=== PATIENT | female | born 1950 | race Caucasian/White ===

== ENCOUNTER 2022-01-06 18:02 | Inpatient (IN) | payer MEDICARE, OTHER ==
[~2022-01-06] VITALS: Ht 160 cm; Wt 63.9 kg
[2022-01-06] MEDS ORDERED: SODIUM CHLORIDE 0.9% 1,000 ML IVB ONE (18:45)
[2022-01-06 19:00] LABS: Basophils # (auto) 0.1 10 ^3/uL (0-0.2); Basophils % (auto) 1.1 % (0.0-2.0); Eosinophils # (auto) 0.1 10 ^3/uL (0-0.8); Eosinophils % (auto) 1.8 % (0.0-7.0); Hematocrit 49.5 % (36.0-46.0); Lymphocytes # (auto) 2.5 10 ^3/uL (0.4-5.4); Lymphocytes % (auto) 30.1 % (10.0-50.0); Mean Corpuscular Hemoglobin 30.9 pg (28.0-32.0); Mean Corpuscular Hgb Conc. 34.3 g/dL (32.0-36.0); Mean Corpuscular Volume 90.1 fL (80.0-100.0); Monocytes # (auto) 0.7 10 ^3/uL (0-1.3); Monocytes % (auto) 8.7 % (0.0-12.0); Neutrophils # (auto) 4.8 10 ^3/uL (1.6-8.6); Neutrophils % (auto) 58.3 % (37.0-80.0); Nucleated Red Blood Cells % 0.1 %; Red Blood Cells 5.49 10^6/uL (4.0-5.20); Red Cell Distribution Width 14.2 % (11.8-14.3); White Blood Cell 8.2 10^3/uL (4.4-10.8)
[2022-01-06 20:42] LABS: Albumin 3.5 g/dL (3.4-5.0); Magnesium 2.2 mg/dL (1.6-2.6); Potassium 3.8 mmol/L (3.5-5.1)
[2022-01-06 20:50] LABS: BUN/Creatinine Ratio 25.3; Bilirubin, Total 0.7 mg/dL (0.2-1.0); Total Protein 7.7 g/dL (6.4-8.2)
[2022-01-06 23:31] LABS: Urine Bacteria MANY /hpf (None Seen); Urine Blood Negative /uL (Negative); Urine Mucus FEW (None Seen); Urine Specific Gravity 1.023 (1.001-1.035); Urine WBC 10 /hpf (0 - 5)
[2022-01-07] MEDS ORDERED: cefTRIAXone 1GM/50ML D5W 50 ML IV ONE (00:30)
[2022-01-07] MEDS ORDERED: SODIUM CHLORIDE 0.9% 1,000 ML IV ONE (00:30)
[2022-01-07] MEDS ORDERED: ONDANSETRON HCL 4 MG/2 ML VIAL IV PRN (01:30)
[2022-01-07] MEDS ORDERED: MORPHINE SULFATE 4 MG/ML SYR/VIAL IV PRN (01:30)
[2022-01-07] MEDS ORDERED: ONDANSETRON HCL 4 MG/2 ML VIAL IV ONE (01:30)
[2022-01-07] MEDS ORDERED: DOCUSATE SOD 100 MG CAP PO PRN (01:30)
[2022-01-07] MEDS ORDERED: LACTATED RINGER'S 1,000 ML IV ONE (01:30)
[2022-01-07] MEDS ORDERED: ACETAMINOPHEN 325 MG TAB PO PRN (01:30)
[2022-01-07 03:20] VITALS: BP 147/64
[2022-01-07 05:00] VITALS: BP 147/64
[2022-01-07 07:06] LABS: Basophils # (auto) 0.1 10 ^3/uL (0-0.2); Eosinophils # (auto) 0.2 10 ^3/uL (0-0.8); Eosinophils % (auto) 2.2 % (0.0-7.0); Hematocrit 42.4 % (36.0-46.0); Hemoglobin 14.5 g/dL (12.2-16.2); Lymphocytes # (auto) 2.3 10 ^3/uL (0.4-5.4); Lymphocytes % (auto) 26.7 % (10.0-50.0); Mean Corpuscular Hemoglobin 30.9 pg (28.0-32.0); Mean Corpuscular Hgb Conc. 34.1 g/dL (32.0-36.0); Mean Corpuscular Volume 90.6 fL (80.0-100.0); Monocytes # (auto) 0.7 10 ^3/uL (0-1.3); Monocytes % (auto) 8.6 % (0.0-12.0); Neutrophils # (auto) 5.3 10 ^3/uL (1.6-8.6); Neutrophils % (auto) 61.5 % (37.0-80.0); Nucleated Red Blood Cells % 0.1 %; Red Blood Cells 4.68 10^6/uL (4.0-5.20); Red Cell Distribution Width 14.1 % (11.8-14.3); White Blood Cell 8.6 10^3/uL (4.4-10.8)
[2022-01-07 07:18] LABS: BUN/Creatinine Ratio 25.3; Calcium 9.2 mg/dL (8.5-10.1); Potassium 3.9 mmol/L (3.5-5.1)
[2022-01-07 08:54] VITALS: BP 133/91
[2022-01-07] MEDS: MULTIPLE VITAMIN TAB PO SCH (10:56)
[2022-01-07] MEDS: FAMOTIDINE 20 MG TAB PO SCH (10:56)
[2022-01-07] MEDS: ENOXAPARIN SOD 40 MG/0.4 ML SYRINGE SC SCH (10:57)
[2022-01-07 11:12] VITALS: BP 145/68
[2022-01-07] MEDS: cefTRIAXone 1GM/50ML D5W 50 ML IV SCH (20:52)
[2022-01-07 22:00] VITALS: BP 124/63
[2022-01-08 05:00] VITALS: BP 135/67
[2022-01-08 05:13] LABS: Basophils # (auto) 0.3 10 ^3/uL (0-0.2); Basophils % (auto) 3.7 % (0.0-2.0); Eosinophils # (auto) 0.2 10 ^3/uL (0-0.8); Eosinophils % (auto) 3.5 % (0.0-7.0); Hematocrit 42.1 % (36.0-46.0); Lymphocytes # (auto) 2.2 10 ^3/uL (0.4-5.4); Lymphocytes % (auto) 32.2 % (10.0-50.0); Mean Corpuscular Hemoglobin 30.6 pg (28.0-32.0); Mean Corpuscular Hgb Conc. 33.2 g/dL (32.0-36.0); Mean Corpuscular Volume 92.1 fL (80.0-100.0); Monocytes # (auto) 0.5 10 ^3/uL (0-1.3); Monocytes % (auto) 7.9 % (0.0-12.0); Neutrophils # (auto) 3.6 10 ^3/uL (1.6-8.6); Neutrophils % (auto) 52.7 % (37.0-80.0); Red Blood Cells 4.57 10^6/uL (4.0-5.20); White Blood Cell 6.9 10^3/uL (4.4-10.8)
[2022-01-08 05:35] LABS: Potassium 3.7 mmol/L (3.5-5.1)
[2022-01-08 05:43] LABS: Albumin 3.1 g/dL (3.4-5.0); BUN/Creatinine Ratio 17.6; Calcium 8.9 mg/dL (8.5-10.1)
[2022-01-08 05:45] LABS: Bilirubin, Total 0.5 mg/dL (0.2-1.0); Total Protein 6.6 g/dL (6.4-8.2)
[2022-01-08 08:00] VITALS: BP 143/75
[2022-01-08] MEDS: FAMOTIDINE 20 MG TAB PO SCH (09:50)
[2022-01-08] MEDS: ENOXAPARIN SOD 40 MG/0.4 ML SYRINGE SC SCH (09:51)
[2022-01-08] MEDS: MULTIPLE VITAMIN TAB PO SCH (09:51)
[2022-01-08] MEDS ORDERED: VANCOMYCIN PER PHARMACY 0 MG IV SCH (10:00)
[2022-01-08] MEDS ORDERED: VANCOMYCIN 1GM/250ML 250 ML IV ONE (10:00)
[2022-01-08 12:30] VITALS: BP 139/73
[2022-01-08] MEDS: SODIUM CHLORIDE 0.9% 1,000 ML IV SCH ×2 (14:10→23:11)
[2022-01-08] MEDS: VANCOMYCIN 1GM/250ML 250 ML IV SCH (14:11)
[2022-01-08 17:00] VITALS: BP 130/70
[2022-01-08] MEDS: cefTRIAXone 1GM/50ML D5W 50 ML IV SCH (20:58)
[2022-01-08 22:00] VITALS: BP 116/69
[2022-01-09 05:00] VITALS: BP 132/66
[2022-01-09] MEDS: SODIUM CHLORIDE 0.9% 1,000 ML IV SCH ×2 (06:04→13:15)
[2022-01-09 09:00] VITALS: BP 134/72
[2022-01-09] MEDS: MULTIPLE VITAMIN TAB PO SCH (09:14)
[2022-01-09] MEDS: FAMOTIDINE 20 MG TAB PO SCH (09:14)
[2022-01-09] MEDS: ENOXAPARIN SOD 40 MG/0.4 ML SYRINGE SC SCH (09:14)
[2022-01-09] MEDS: VANCOMYCIN 1GM/250ML 250 ML IV SCH (14:00)
[2022-01-09] MEDS: cefTRIAXone 1GM/50ML D5W 50 ML IV SCH (21:01)
[2022-01-09 21:55] VITALS: BP 143/48
[2022-01-10] MEDS: SODIUM CHLORIDE 0.9% 1,000 ML IV SCH ×2 (00:56→06:15)
[2022-01-10 05:00] VITALS: BP 137/67
[2022-01-10 06:54] LABS: Calcium 8.4 mg/dL (8.5-10.1); Potassium 3.7 mmol/L (3.5-5.1)
[2022-01-10 07:03] LABS: BUN/Creatinine Ratio 16.3
[2022-01-10 09:00] VITALS: BP 165/112
[2022-01-10] MEDS: MULTIPLE VITAMIN TAB PO SCH (09:24)
[2022-01-10] MEDS: FAMOTIDINE 20 MG TAB PO SCH (09:24)
[2022-01-10] MEDS: ENOXAPARIN SOD 40 MG/0.4 ML SYRINGE SC SCH (09:24)
[2022-01-10] MEDS ORDERED: LEVO500T31 PO (10:16)
== END 2022-01-10 12:45 | disposition home health service (06) | DRG 872 ==
LOC: ER 18:04 → EDBD 18:04 → OVERFLOW 01-07 01:17 → CENTRAL 01-07 01:18
PROVIDERS: ADMIT Internal Medicine; ATTEND Family Medicine
DX: A41.51 Sepsis due to Escherichia coli [E. coli] (principal); N10 Acute pyelonephritis; E86.0 Dehydration; M41.9 Scoliosis, unspecified; Z66 Do not resuscitate; F41.9 Anxiety disorder, unspecified; R53.81 Other malaise; Z20.822 Contact with and (suspected) exposure to COVID-19; Z88.5 Allergy status to narcotic agent; Z90.49 Acquired absence of other specified parts of digestive tract; Z82.49 Family history of ischemic heart disease and other diseases of the circulatory system; Z80.0 Family history of malignant neoplasm of digestive organs; Z98.82 Breast implant status; Z88.8 Allergy status to other drugs, medicaments and biological substances
CPT/HCPCS: 36415; 70450; 71045; 74176; 80048; 80053; 81001; 82565; 83690; 83735; 83880; 84484; 85025; 87040; 87077; 87086; 87088; 87186; 87426; 93005; 96361; 96365; 97163; G0378; J0696; J2405

== ENCOUNTER → 2022-03-22 | Outpatient (CLI) | payer MEDICARE, OTHER ==
[~2022-03-22] MED LIST: LEVO500T31 PO
== END | disposition home or self-care (01) ==
LOC: XYW 08:48
PROVIDERS: ATTEND Internal Medicine
DX: I77.9 Disorder of arteries and arterioles, unspecified (principal); I70.90 Unspecified atherosclerosis
CPT/HCPCS: 93886

== ENCOUNTER → 2022-03-22 | Outpatient (CLI) | payer MEDICARE, OTHER ==
[2022-03-22 10:42] LABS: Cholesterol 240 mg/dL (< 200)
[2022-03-22 10:44] LABS: HDL Cholesterol 75 mg/dL (40-59); LDL Cholesterol 142 mg/dL (< 100); Triglycerides 80 mg/dL (< 150)
[2022-03-26 13:48] LABS: Urine Bacteria MOD /hpf (None Seen); Urine Blood Negative /uL (Negative); Urine Specific Gravity 1.011 (1.001-1.035); Urine WBC <1 /hpf (0 - 5)
== END | disposition home or self-care (01) ==
LOC: LAB 09:24
PROVIDERS: ATTEND Internal Medicine
DX: I10 Essential (primary) hypertension (principal); Z12.11 Encounter for screening for malignant neoplasm of colon
CPT/HCPCS: 36415; 80061; 81001; 83036

== ENCOUNTER → 2022-03-26 | Outpatient (CLI) | payer MEDICARE, OTHER | END | disposition home or self-care (01) | LOC: LAB 09:40 | PROVIDERS: ATTEND Internal Medicine | DX: I10 Essential (primary) hypertension (principal); Z12.11 Encounter for screening for malignant neoplasm of colon | CPT/HCPCS: 82270 ==

== ENCOUNTER → 2022-03-26 | Outpatient (CLI) | payer MEDICARE, OTHER | END | disposition home or self-care (01) | LOC: XYW 09:12 | PROVIDERS: ATTEND Internal Medicine | DX: I08.1 Rheumatic disorders of both mitral and tricuspid valves (principal); I35.8 Other nonrheumatic aortic valve disorders | CPT/HCPCS: 93306 ==

== ENCOUNTER 2025-08-24 15:08 | Inpatient (IN) | payer MEDICARE, OTHER ==
[~2025-08-24] VITALS: Ht 157.5 cm; Wt 54.3 kg
[2025-08-24] MEDS: SODIUM CHLORIDE 0.9% 1,000 ML IV ONE ×2 (15:30→22:54)
--- NOTE | 2025-08-24 15:34 | ECG ---
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
--- NOTE | 2025-08-24 15:34 | ED.PDOC ---
GI ASSESSMENT HPI Comments This is a 74 year old female BIB daughter presenting to the ED with chief complaint of abdominal pain. Patient reports that she has been experiencing epigastric abdominal pain with associated nausea, vomiting, diarrhea, fatigue, dizzy spells, and chills for the past 2 days along with headaches since yesterday. Daughter relays that the patient uses marijuana daily for "medicinal purposes." Daughter states patient had history of sepsis last year. Patient denies any fever, chest pain, SOB, hematemesis, melena, dysuria, or flank pain. Chief Complaint: General Weakness Time Seen by MD: 15:30 Primary Care Provider: MEGIES PMD Reviewed Notes: Nurses Notes, Medications, Allergies Allergies: Coded Allergies: Codeine (Verified Allergy, Mild, 01/06/22) Ibuprofen (Verified Allergy, Mild, 01/06/22) Home Meds Active Scripts Levofloxacin (Levaquin) 500 Mg Tab, 500 MG PO DAILY, #10 TAB Prov:YOSEF COX MD 01/10/22 Information Source: Patient, Relative Mode of Arrival: Ambulatory Timing: Days Duration: Since onset Prehospital treatment: None Quality: Aching Vomitus: Watery Stool: Watery Severity: Moderate Recent: Other (Marijuana use) Recent Hx of: None Pain Location: Epigastric Modifying Factors: Nothing Associated sign and symptoms: Nausea, Vomiting, Diarrhea, Abdominal Pain Past Medical History PAST MEDICAL HISTORY: Denies Surgical History: Cholecystectomy Surgical History (Other): Breast Augmentation PARTY PLANNER History: Denies all PARTY PLANNER Hx Family History Family History: Reviewed,noncontributory to illness, Family hx of Cancer, Family hx of HTN Social History Smoker: Non-Smoker Alcohol: Occasionally Drugs: Marijuana Lives In: Home Constitutional: reports: chills, fatigue, weakness; denies: diaphoresis, fever, malaise, sweats, others EENTM: denies: blurred vision, double vision, ear bleeding, ear discharge, ear drainage, ear pain, ear ringing, eye pain, eye redness, hearing loss, mouth pain, mouth swelling, nasal discharge, nose bleeding, nose congestion, nose pain, photophobia, tearing, throat pain, throat swelling, voice changes, others Respiratory: denies: cough, hemoptysis, orthopnea, SOB at rest, shortness of breath, SOB with excertion, stridor, wheezing, others Cardiovascular: reports: dizzy spells; denies: chest pain, diaphoresis, Dyspnea on exertion, edema, irregular heart beat, left arm pain, lightheadedness, palpitations, PND, syncope, others Gastrointestinal: reports: abdominal pain, diarrhea, nausea, vomiting; denies: abdomen distended, blood streaked bowels, constipated, dysphagia, difficulty swallowing, hematemesis, melena, poor appetite, poor fluid intake, rectal bleeding, rectal pain, others Genitourinary: denies: abnormal vagina bleeding, burning, dyspareunia, dysuria, flank pain, frequency, hematuria, incontinence, pain, , vagina discharge, urgency, others Neurological: reports: headache; denies: dizziness, fainting, left sided numbness, left sided weakness, numbness, paresthesia, pre-existing deficit, right sided numbness, right sided weakness, seizure, speech problems, tingling, tremors, weakness, others Musculoskeletal: denies: back pain, gout, joint pain, joint swelling, muscle pain, muscle stiffness, neck pain, others Integumetry: denies: bruises, change in color, change in hair/nails, dryness, laceration, lesions, lumps, rash, wounds, others Allergic/Immunocompromised: denies: Difficulty Healing, Frequent Infections, Hives, Itching, others Hematologic/Lymphatic: denies: anemia, blood clots, easy bleeding, easy bruising, swollen glands, others Endocrine: denies: excessive hunger, excessive sweating, excessive thirst, excessive urination, flushing, intolerance to cold, intolerance to heat, unexplained weight gain, unexplained weight loss, others Psychiatric: denies: anxiety, bipolar disorder, depression, hopeless, panic disorder, schizophrenia, sleepless, suicidal, others All Other Systems: Reviewed and Negative Physical Exam General Appearance: No Apparent Distress HEENT: Normal ENT Inspection, Pharynx Normal, TMs Normal Neck: Full Range of Motion, Non-Tender, Normal, Normal Inspection Respiratory: Chest Non-Tender, Lungs Clear, No Accessory Muscle Use, No Respiratory Distress, Normal Breath Sounds Cardiovascular: No Edema, No JVD, No Murmur, No Gallop, Normal Peripheral Pulses, Regular Rate/Rhythm Breast Exam: Deferred Gastrointestinal: No Organomegaly, Non Tender, No Pulsatile Mass, Normal Bowel Sounds, Soft Genitalia: Deferred Pelvic: Deferred Rectal: Deferred Extremities: No calf tenderness, Normal capillary refill, Normal inspection, Normal range of motion, Non-tender, No pedal edema Musculoskeletal : Apperance: Normal Neurologic: electrical design engineer II-XII nml as Tested, Motor Weakness, Normal Affect, Normal Mood, No Sensory Deficits Cerebellar Function: Unable to Test Reflexes: Normal Skin: Dry, Pallor, Warm Lymphatic: No Adenopathy EKG EKG : Pulse Rate (adult): 92 [place]: Normal Cardiac Rhythm: NSR Block: None Hypertrophy: None ST: Normal Was a procedure done? Was a procedure done?: No GI differential Dx Differential Diagnosis: Appendicitis, Gastritis/PUD, Gastroenteritis, Pancreatitis, UTI, Electrolyte Imbalance X-Ray, Labs, Meds, VS Vital Signs Date Time Temp Pulse Resp B/P (MAP) Pulse Ox O2 Delivery O2 Flow Rate FiO2 08/24/25 15:34 92 08/24/25 15:25 92 08/24/25 15:11 98.3 99 18 151/95 95 98.3 Lab Test 08/24/25 16:00 08/24/25 15:38 Range/Units Urine Color Yellow Yellow Urine Clarity Turbid H Clear Urine pH 5.5 5.0-9.0 Urine Specific [place] 1.023 1.001-1.035 Urine Protein 1+ H Negative Urine Ketones 2+ H Negative Urine Blood 1+ H Negative /uL Urine Nitrite Negative Negative Urine Bilirubin Negative Negative Urine Urobilinogen Normal Negative mg/dL Urine Leukocyte Esterase 3+ Negative /uL Urine RBC 21 0 - 4 /hpf Urine Microscopic WBC 65 H 0-5 /HPF Urine Squamous Epithelial Cells Mod <5 /hpf Urine Bacteria Few H None Seen /hpf Urine Hyaline Casts Few 0 - 2 /lpf Urine Mucus Few None Seen Urine Glucose Normal Normal mg/dL White Blood Count 7.6 4.4-10.8 10^3/uL Red Blood Count 5.61 H 4.0-5.20 10^6/uL Hemoglobin 17.1 H 12.2-16.2 g/dL Hematocrit 52.8 H 36.0-46.0 % Mean Corpuscular Volume 94.2 80.0-100.0 fL Mean Corpuscular Hemoglobin 30.6 28.0-32.0 pg Mean Corpuscular Hemoglobin Concent 32.5 32.0-36.0 g/dL Red Cell Distribution Width 15.1 H 11.8-14.3 % Platelet Count 287 140-450 10^3/uL Mean Platelet Volume 8.3 6.9-10.8 fL Neutrophils (%) (Auto) 53.1 37.0-80.0 % Lymphocytes (%) (Auto) 34.9 10.0-50.0 % Monocytes (%) (Auto) 11.3 0.0-12.0 % Eosinophils (%) (Auto) 0.2 0.0-7.0 % Basophils (%) (Auto) 0.5 0.0-2.0 % Neutrophils # (Auto) 4.1 1.6-8.6 10 ^3/uL Lymphocytes # (Auto) 2.7 0.4-5.4 10 ^3/uL Monocytes # (Auto) 0.9 0-1.3 10 ^3/uL Eosinophils # (Auto) 0 0-0.8 10 ^3/uL Basophils # (Auto) 0 0-0.2 10 ^3/uL Nucleated Red Blood Cells 0.2 % Sodium Level 136 136-145 mmol/L Potassium Level 3.7 3.5-5.1 mmol/L Chloride Level 99 98-107 mmol/L Carbon Dioxide Level 25 20-31 mmol/L Anion Gap 12 5-15 Blood Urea Nitrogen 9 9-23 mg/dL Creatinine 0.91 0.550-1.02 mg/dL Glomerular Filtration Rate Calc 65 >90 mL/min BUN/Creatinine Ratio 9.9 L 10.0-20.0 Serum Glucose 117 H 74-106 mg/dL Calcium Level 9.6 8.7-10.4 mg/dL CBC is within normal limits The chemistry panel is within normal limits The urine test is positive for UTI The urine test is also positive for ketones, protein and blood The patient is being given Rocephin 1 g IV piggyback The patient will continue to be hydrated with normal saline We feel that the patient is to be admitted at this time because she can not take oral medications for her UTI The patient is admitted Images Reviewed?: Images reviewed and evaluated by me Time of 1ST Reevaluation: 17:09 Reevaluation 1ST: Unchanged Patient Education/Counseling: Diagnosis, Treatment, Prognosis Family Education/Counseling: Diagnosis, Treatment, Prognosis SEPSIS Sepsis Screen Date sepsis recognized/suspect: Aug 24, 2025 Time Sepsis recognized/suspect: 1511 Recent Procedure: No On Antibiotic Therapy: No Respiratory Rate >20: No Heart Rate >90: No Temp<36 C (96.8 F) or >38.3 C: No SBP <90 or MAP <65 mmHG: No New Acute Mental Status Change: No Is the patient on CPAP, BIPAP,: No Physician Orders Heplock Iv (08/24/25 15:28) Slurry Plant Operator (08/24/25 15:28) Blood Pressure (08/24/25 15:28) Pulse Oximetry (08/24/25 15:28) Vital Signs Date Time Temp Pulse Resp B/P (MAP) Pulse Ox O2 Delivery O2 Flow Rate FiO2 08/24/25 15:34 92 08/24/25 15:25 92 08/24/25 15:11 98.3 99 18 151/95 95 98.3 Laboratory Tests Test 08/24/25 15:38 White Blood Count 7.6 10^3/uL (4.4-10.8) Departure 1 Departure Time of Disposition: 17:09 Impression: Primary Impression: Intractable vomiting Additional Impressions: Generalized weakness Dehydration Disposition: ADMITTED INPATIENT Admit to: Med Surg Condition: Fair Critical Care Note Critical Care Time?: No Stability Stability form required: Yes Unstable for transfer: Telemetry monitoring (Telemetry monitoring required), ED Physician Assesment (Clinical assesment) Heart Score Heart Score: Heart Score Response (Comments) Value History N/A 0 EKG N/A 0 Age N/A 0 Risk Factors N/A 0 Troponin N/A 0 Total 0 I personally scribed for FRANCOIS BENEDICT MD ([email or web address]) on 08/24/25 at 15:34. Electronically submitted by Gigi Bermudez ([email or web address]). FRANCOIS BENEDICT MD Aug 24, 2025 15:34
[2025-08-24 16:04] LABS: Hematocrit 52.8 % (36.0-46.0); Hemoglobin 17.1 g/dL (12.2-16.2); Mean Corpuscular Hemoglobin 30.6 pg (28.0-32.0); Mean Corpuscular Volume 94.2 fL (80.0-100.0); Nucleated Red Blood Cells % 0.2 %
[2025-08-24 16:11] LABS: Chloride 99 mmol/L (98-107); Potassium 3.7 mmol/L (3.5-5.1); Sodium 136 mmol/L (136-145)
[2025-08-24 16:12] LABS: Anion Gap 12 (5-15); Calcium 9.6 mg/dL (8.7-10.4); Carbon Dioxide 25 mmol/L (20-31)
[2025-08-24 16:17] LABS: BUN/Creatinine Ratio 9.9 (10.0-20.0); Blood Urea Nitrogen 9 mg/dL (9-23); Glucose 117 mg/dL (74-106)
[2025-08-24 17:04] LABS: Urine Protein, UAD 1+ (Negative)
[2025-08-24] MEDS: ONDANSETRON HCL 4 MG/2 ML VIAL IV ONE (19:14)
[2025-08-24 21:10] LABS: Alanine Aminotransferase 28 U/L (7-40); Alkaline Phosphatase 103 U/L (46-116)
[2025-08-24 21:11] LABS: Albumin 4.8 g/dL (3.2-4.8); Bilirubin, Total 0.3 mg/dL (0.2-1.0)
--- NOTE | 2025-08-24 21:12 | DVHHPRES ---
History of Present Illness Resident Creating Document: JOSE BOONE History of Present Illness Ms. Hall is a 74-year-old female with no prior medical history, who presents accompanied by daughter, Marisa, to the ED with chief complaint of generalized weakness. She refers 2 days of generalized weakness, fatigue, generalized body aches, diarrhea, vomiting, decreased appetite, chills and febrile sensation. Additionally refers occasional right lower back pain described as dull, non- radiating, 4/10 intensity, with aggravating or relieving factors. She denies chest pain, cough, palpitations, dysuria, hematuria, disorientation, and other symptoms. Due to persistence of symptoms, the patient was brought by her daughter to seek medical attention. On evaluation in the ED, the patient was afebrile, slightly tachycardic, and hypertensive. Initial labs show CBC with possible signs of dehydration, chemical panel within normal range, UDS positive for cannabis, and UA significant for UTI. Abdominal CT shows no acute abdominal finding. She was started on IV fluids and IV antibiotics. She was admitted for further work up and monitoring. Prior Medical History: Denies Surgical history: Cholecystectomy, breast augmentation Allergies: Codeine and Motrin (patient states they make her feel ill) Social History: States she has smoked 1 joint of marijuana a day for over 45 years, denies other drug or alcohol use. States she smoked 1 pack a day of cigarettes for 10 years and quit approximately 30 years ago. Review of Systems Review of Systems Constitutional: Refers chills, fatigue, generalized body aches, febrile sensation, decreased appetite HEENT: Denies changes in vision and hearing. Respiratory: Denies shortness of breath and cough Cardiovascular: Denies chest discomfort or palpitations GI: Refers occasional diarrhea, nausea, vomiting Denies abdominal distention, abdominal pain : Denies dysuria and urinary frequency. Musculoskeletal: Refers localized right lower back pain Skin: Denies rash and pruritus. Neurological: denies dizziness headache vision or hearing problems Allergies: Coded Allergies: Codeine (Verified Allergy, Mild, 01/06/22) Ibuprofen (Verified Allergy, Mild, 01/06/22) Medications Current Medications Medications Dose Ordered Sig/Lenora Route Start Time Stop Time Status Last Admin Dose Admin Acetaminophen 325 mg Q4HP PRN PO 08/24/25 21:15 UNV Exam Vital Signs Vital Signs Date Time Temp Pulse Resp B/P (MAP) Pulse Ox O2 Delivery O2 Flow Rate FiO2 08/24/25 19:01 88 18 98 Room Air 08/24/25 19:01 131/91 (104) 08/24/25 15:11 98.3 98.3 Exam General: The patient alert and oriented in person place and time. Patient following commands HEENT: Normocephalic, atraumatic, normal reactive pupils, EOM intact, pink conjunctiva, pink dry mucous membrane Respiratory/pulmonary: Bilateral chest expansion, no pain on palpation of chest wall, clear lungs bilaterally, vesicular murmurs present in almost all lung monte, no associated crackles or wheezes. Back: Kyphosis of thoracic spine is present, no pain on palpation Cardiovascular: Normal RRR, normal S1 and S2, no murmurs Abdomen: Abdomen nondistended, normal bowel sounds, soft, there is no pain to palpation in any of the abdominal quadrants, no palpable masses. Extremities: No deformities, there is no peripheral edema present at the lower extremities, normal pulses Skin: No rashes or pruritus, there is no sacral edema present at this time. Neurological: Intact cranial nerves with no focal neurologic deficits Labs/Xrays Labs Test 08/24/25 16:00 08/24/25 15:38 Range/Units Urine Color Yellow Yellow Urine Clarity Turbid H Clear Urine pH 5.5 5.0-9.0 Urine Specific [place] 1.023 1.001-1.035 Urine Protein 1+ H Negative Urine Ketones 2+ H Negative Urine Blood 1+ H Negative /uL Urine Nitrite Negative Negative Urine Bilirubin Negative Negative Urine Urobilinogen Normal Negative mg/dL Urine Leukocyte Esterase 3+ Negative /uL Urine RBC 21 0 - 4 /hpf Urine Microscopic WBC 65 H 0-5 /HPF Urine Squamous Epithelial Cells Mod <5 /hpf Urine Bacteria Few H None Seen /hpf Urine Hyaline Casts Few 0 - 2 /lpf Urine Mucus Few None Seen Urine Glucose Normal Normal mg/dL White Blood Count 7.6 4.4-10.8 10^3/uL Red Blood Count 5.61 H 4.0-5.20 10^6/uL Hemoglobin 17.1 H 12.2-16.2 g/dL Hematocrit 52.8 H 36.0-46.0 % Mean Corpuscular Volume 94.2 80.0-100.0 fL Mean Corpuscular Hemoglobin 30.6 28.0-32.0 pg Mean Corpuscular Hemoglobin Concent 32.5 32.0-36.0 g/dL Red Cell Distribution Width 15.1 H 11.8-14.3 % Platelet Count 287 140-450 10^3/uL Mean Platelet Volume 8.3 6.9-10.8 fL Neutrophils (%) (Auto) 53.1 37.0-80.0 % Lymphocytes (%) (Auto) 34.9 10.0-50.0 % Monocytes (%) (Auto) 11.3 0.0-12.0 % Eosinophils (%) (Auto) 0.2 0.0-7.0 % Basophils (%) (Auto) 0.5 0.0-2.0 % Neutrophils # (Auto) 4.1 1.6-8.6 10 ^3/uL Lymphocytes # (Auto) 2.7 0.4-5.4 10 ^3/uL Monocytes # (Auto) 0.9 0-1.3 10 ^3/uL Eosinophils # (Auto) 0 0-0.8 10 ^3/uL Basophils # (Auto) 0 0-0.2 10 ^3/uL Nucleated Red Blood Cells 0.2 % Sodium Level 136 136-145 mmol/L Potassium Level 3.7 3.5-5.1 mmol/L Chloride Level 99 98-107 mmol/L Carbon Dioxide Level 25 20-31 mmol/L Anion Gap 12 5-15 Blood Urea Nitrogen 9 9-23 mg/dL Creatinine 0.91 0.550-1.02 mg/dL Glomerular Filtration Rate Calc 65 >90 mL/min BUN/Creatinine Ratio 9.9 L 10.0-20.0 Serum Glucose 117 H 74-106 mg/dL Calcium Level 9.6 8.7-10.4 mg/dL SEPSIS Sepsis Screen Date sepsis recognized/suspect: Aug 24, 2025 Time Sepsis recognized/suspect: 1510 Recent Procedure: No On Antibiotic Therapy: No Respiratory Rate >20: No Heart Rate >90: No Temp<36 C (96.8 F) or >38.3 C: No SBP <90 or MAP <65 mmHG: No New Acute Mental Status Change: No Is the patient on CPAP, BIPAP,: No Physician Orders Heplock Iv (08/24/25 15:28) Children'S Ministry Director (08/24/25 15:28) Blood Pressure (08/24/25 15:28) Pulse Oximetry (08/24/25 15:28) Electrocardigram (08/24/25 17:31) Blood Culture (08/24/25 20:21) Hemoglobin A1c (08/24/25 20:21) Hepatic Panel (08/24/25 20:21) Phosphorus (08/24/25 20:21) Lactic Acid W/ Reflex Order (08/24/25:21) Thyroid Stimulating Hormone (08/24/25:21) Vitamin B12 (08/24/25 20:21) Vitamin D, 25-Hydroxy (08/24/25 20:21) Urine Bacterial Culture (08/24/25 20:21) Drug Screen (08/24/25:) Abdomen Without Contrast (08/24/25:) Admit (08/24/25 21:02) Allergies (08/24/25 21:02) Code Status (08/24/25 21:02) Acetaminophen Tablet (Tylenol Tablet) (08/24/25:15) Enoxaparin Sodium (Lovenox) (08/25/25 10:00) Condition: Stable (08/24/25 21:02) Stat Ekg For Chest Pain (08/24/25 21:02) Notify Md Of Changes From Base (08/24/25 21:02) Emergency Dysrhythmia Protocol (08/24/25 21:02) Rhythm Strips Once Every Shift (08/24/25 21:02) Ceftriaxone 1gm/50ml (Rocephin) (08/24/25 21:15) Ceftriaxone 1gm/50ml (Rocephin) (08/25/25 09:00) Sodium Chloride 0.9% (08/24/25:15) Complete Blood Count (08/25/25 04:00) Basic Metabolic Panel (08/25/25 04:00) Vital Signs Date Time Temp Pulse Resp B/P (MAP) Pulse Ox O2 Delivery O2 Flow Rate FiO2 08/24/25 19:01 88 18 98 Room Air 08/24/25 19:01 85 18 131/91 (104) 97 08/24/25 15:34 92 08/24/25 15:25 92 08/24/25 15:11 98.3 99 18 151/95 95 98.3 Laboratory Tests Test 10/14/25 15:38 White Blood Count 7.6 10^3/uL (4.4-10.8) Medications Medications Dose Ordered Sig/Lenora Route Start Time Stop Time Status Last Admin Dose Admin Ondansetron HCl 4 mg ONCE ONCE IV 08/24/25 15:30 08/24/25 15:31 DC 08/24/25 19:14 4 MG Sodium Chloride 1,000 ml @ 1,000 mls/hr Q1H ONCE IV 08/24/25 15:30 08/24/25 16:29 DC 08/24/25 15:30 1,000 MLS/HR Assessment/Plan Assessment/Plan Assessment and Plan: Acute Complicated UTI with microhematuria - Ceftriaxone 1 g IV daily - NS 1000 cc bolus attempts to - NS maintenance 50 cc/hour - Urine culture has been ordered - Blood culture was ordered Intractable nausea and vomiting likely due to above Dehydration likely due to above - IV fluids - Zofran 4 mg IV once Vitamin-D deficiency -Vitamin D3 50410 units Q7D Marijuana Use - I have counseled the patient on the importance of complete marijuana cessation for over 11 minutes. Diet: Soft mechanical diet DVT prophylaxis: Enoxaparin 40 mg SC daily GI prophylaxis: Protonix 40 mg IV daily Case discussed with Dr. Mary Goals of care discussed with the patient and her daughter Marisa at bedside for over 23 minutes. Full code. Plan discussed with: Patient, Daughter (Marisa), Other (Nurses) My Orders Orders - JOSE BOONE RESIDENT Procedure Category Date Status Time Blood Culture KEVIN 08/24/25 Logged 20:21 Hemoglobin A1c LAB 08/24/25 In Process 20:21 Hepatic Panel LAB 08/24/25 In Process 20:21 Phosphorus LAB 08/24/25 In Process 20:21 Lactic Acid W/ Reflex LAB 08/24/25 Logged Order 20:21 Thyroid Stimulating LAB 08/24/25 In Process Hormone 20:21 Vitamin B12 LAB 08/24/25 In Process 20:21 Vitamin D, 25-Hydroxy LAB 08/24/25 In Process 20:21 Urine Bacterial KEVIN 08/24/25 In Process Culture 20:21 Drug Screen LAB 08/24/25 In Process 20:[address] 08/24/25 Taken Contrast 20:21 Admit ADMIT 08/24/25 Transmitted 21:02 Allergies ELIZABETH 08/24/25 In Process 21:02 Code Status CODE 10/14/25 Transmitted 21:02 Acetaminophen Tablet PHA 08/24/25 Logged (Tylenol Tablet) 21:15 Enoxaparin Sodium PHA 08/25/25 Logged (Lovenox) 10:00 Condition: Stable ELIZABETH 08/24/25 In Process 21:02 Stat Ekg For Chest [facility] 08/24/25 In Process Pain 21:02 Notify Md Of Changes [facility] 08/24/25 In Process From Base 21:02 Emergency Dysrhythmia [facility] 08/24/25 In Process Protocol 21:02 Rhythm Strips Once [facility] 08/24/25 In Process Every Shift 21:02 Ceftriaxone 1gm/50ml [facility] 08/24/25 Logged (Rocephin) 21:15 Ceftriaxone 1gm/50ml [facility] 08/25/25 Logged (Rocephin) 09:00 Sodium Chloride 0.9% [facility] 08/24/25 Logged 21:15 Complete Blood Count LAB 08/25/25 Verified 04:00 Basic Metabolic Panel LAB 08/25/25 Verified 04:00 Date of Service: Aug 24, 2025 Billing Provider: KARL RENTERIA MD Common Visit Codes: 13546-SRCBPUH INP/OBS CARE (HIGH) Secondary Visit Codes: 25590-[id number] CARE PLAN 30 MINUTES JOSE BOONE RESIDENT Aug 24, 2025 21:12 MIGUELANGEL BACK RESIDENT Aug 25, 2025 04:08
[2025-08-24] MEDS ORDERED: ACETAMINOPHEN 325 MG TAB PO PRN (21:15)
[2025-08-24 21:17] LABS: Bilirubin, Direct < 0.1 mg/dL (<0.3); Total Protein 8.8 g/dL (5.7-8.2)
--- NOTE | 2025-08-24 21:20 | DVH ---
Exam: CT ABDOMEN WITHOUT CONTRAST History: Abdominal Pain Comparison Study: CT ABD PELVIS WO CONTRAST on DOS: 01/07/22 Technique: Multidetector spiral CT of the abdomen was performed from lung bases to iliac crest. Imagi ng was performed without IV contrast. Axial, coronal and sagittal multiplanar reformats were obtained from the axial data set by the technologist. Radiation Dose : CT Dose: CTDI volume is 5.34 mGy. Dose-length product is 270.65 mGy*cm Findings: Evaluation of solid organs is limited due to lack of intravenous contrast use. Lung Bases: No acute or significant lung base finding. Normal heart size. No pleural or pericardial effusion. Liver: The liver is normal in size. No focal lesions. Gallbladder and Biliary Tree: Gallbladder is surgically absent. Spleen: Unremarkable Pancreas: The pancreas is grossly normal in appearance. Adrenal Glands: Unremarkable Kidneys: Kidneys are grossly normal without calculi or hydronephrosis. Visualized Bowel: The stomach is grossly normal in appearance. Small bowel and colon are normal in ca liber and distribution. Ascites: Absent Lymphadenopathy: No mesenteric, retroperitoneal or periportal lymphadenopathy. Abdominal Wall and Mesentery: Unremarkable. Vasculature: The visualized abdominal aorta is normal in size and caliber. Evaluation of abdominal a nd pelvic vessels is limited due to lack of intravenous contrast. Musculoskeletal: No aggressive focal bony lesions, acute fractures or dislocation. IMPRESSION: No acute abdominal finding. Radiation optimization: All CT scans at this facility use at least one of these dose optimization nancy hniques: automated exposure control mA and/or kV adjustment per patient size (includes targeted exam s where dose is matched to clinical indication) or iterative reconstruction.
[2025-08-24 21:29] LABS: Cannabinoid Screen, Urine Pos (NEGATIVE)
[2025-08-24 21:41] LABS: Amphetamine Screen, Urine Neg (NEGATIVE); Barbiturate Scree,Urine Neg (NEGATIVE); Benzodiazephine Screen, Urine Neg (NEGATIVE); Cocaine Screen, Urine Neg (NEGATIVE); Opiate Scree,Urine Neg (NEGATIVE); Phencyclidine Screen, Urine Neg (NEGATIVE)
[2025-08-25 01:09] VITALS: PULSE 65; RESP 18; O2SAT 97
[2025-08-25] MEDS: SODIUM CHLORIDE 0.9% 1,000 ML IV SCH (02:23)
[2025-08-25 05:00] VITALS: BP 145/76; PULSE 67; RESP 18; TEMP 98.4; O2SAT 96
[2025-08-25 07:17] LABS: Hematocrit 43.5 % (36.0-46.0); Hemoglobin 15.1 g/dL (12.2-16.2); Mean Corpuscular Hemoglobin 32.0 pg (28.0-32.0); Mean Corpuscular Volume 92.3 fL (80.0-100.0); Nucleated Red Blood Cells % 0.2 %
[2025-08-25 07:22] LABS: Anion Gap 11 (5-15); Carbon Dioxide 24 mmol/L (20-31); Chloride 106 mmol/L (98-107); Potassium 3.5 mmol/L (3.5-5.1); Sodium 141 mmol/L (136-145)
[2025-08-25 07:28] LABS: BUN/Creatinine Ratio 13.9 (10.0-20.0); Blood Urea Nitrogen 10 mg/dL (9-23); Glucose 94 mg/dL (74-106)
[2025-08-25 07:29] LABS: Calcium 8.4 mg/dL (8.7-10.4)
[2025-08-25 08:02] LABS: COVID19 ANTIGEN SOFIA FIA POSITIVE (NEGATIVE)
[2025-08-25 09:00] VITALS: BP 126/76; PULSE 67; RESP 17; TEMP 97.7; O2SAT 96
[2025-08-25 12:30] VITALS: BP 126/71; PULSE 66; RESP 14; TEMP 98.7; O2SAT 97
[2025-08-25] MEDS: ERGOCALCIFEROL 50,000 UNIT(1.25MG) CAP PO SCH (12:41)
[2025-08-25] MEDS: ENOXAPARIN SOD 40 MG/0.4 ML SYRINGE SC SCH (12:41)
[2025-08-25] MEDS: PANTOPRAZOLE 40 MG/10 ML VIAL INJ IV SCH (12:41)
--- NOTE | 2025-08-25 13:22 | DVHDSRES ---
Discharge Summary Date of Admission Resident Creating Document: LUNA MENDEZ RESIDENT Aug 24, 2025 at 21:02 Date of Discharge: Aug 25, 2025 Labs/Diagnostic Data: Laboratory Results Test 08/25/25 07:10 08/25/25 06:36 08/24/25 21:04 08/24/25 16:00 Influenza Type A Antigen Negative (Negative) Influenza Type B Antigen Negative (Negative) SARS-CoV-2 Antigen (Rapid) Positive (NEGATIVE) White Blood Count 6.1 10^3/uL (4.4-10.8) Red Blood Count 4.71 10^6/uL (4.0-5.20) Hemoglobin 15.1 g/dL (12.2-16.2) Hematocrit 43.5 % (36.0-46.0) Mean Corpuscular Volume 92.3 fL (80.0-100.0) Mean Corpuscular Hemoglobin 32.0 pg (28.0-32.0) Mean Corpuscular Hemoglobin Concent 34.7 g/dL (32.0-36.0) Red Cell Distribution Width 14.3 % (11.8-14.3) Platelet Count 250 10^3/uL (140-450) Mean Platelet Volume 8.4 fL (6.9-10.8) Neutrophils (%) (Auto) 38.2 % (37.0-80.0) Lymphocytes (%) (Auto) 48.1 % (10.0-50.0) Monocytes (%) (Auto) 11.9 % (0.0-12.0) Eosinophils (%) (Auto) 1.2 % (0.0-7.0) Basophils (%) (Auto) 0.6 % (0.0-2.0) Neutrophils # (Auto) 2.3 10 ^3/uL (1.6-8.6) Lymphocytes # (Auto) 2.9 10 ^3/uL (0.4-5.4) Monocytes # (Auto) 0.7 10 ^3/uL (0-1.3) Eosinophils # (Auto) 0.1 10 ^3/uL (0-0.8) Basophils # (Auto) 0 10 ^3/uL (0-0.2) Nucleated Red Blood Cells 0.2 % Sodium Level 141 mmol/L (136-145) Potassium Level 3.5 mmol/L (3.5-5.1) Chloride Level 106 mmol/L (98-107) Carbon Dioxide Level 24 mmol/L (20-31) Anion Gap 11 (5-15) Blood Urea Nitrogen 10 mg/dL (9-23) Creatinine 0.72 mg/dL (0.550-1.02) Glomerular Filtration Rate Calc 87 mL/min (>90) BUN/Creatinine Ratio 13.9 (10.0-20.0) Serum Glucose 94 mg/dL (74-106) Calcium Level 8.4 mg/dL (8.7-10.4) Lactic Acid Level 1.4 mmol/L (0.4-2.0) Urine Color Yellow (Yellow) Urine Clarity Turbid (Clear) Urine pH 5.5 (5.0-9.0) Urine Specific [place] 1.023 (1.001-1.035) Urine Protein 1+ (Negative) Urine Ketones 2+ (Negative) Urine Blood 1+ /uL (Negative) Urine Nitrite Negative (Negative) Urine Bilirubin Negative (Negative) Urine Urobilinogen Normal mg/dL (Negative) Urine Leukocyte Esterase 3+ /uL (Negative) Urine RBC 21 /hpf (0 - 4) Urine Microscopic WBC 65 /HPF (0-5) Urine Squamous Epithelial Cells Mod /hpf (<5) Urine Bacteria Few /hpf (None Seen) Urine Hyaline Casts Few /lpf (0 - 2) Urine Mucus Few (None Seen) Urine Glucose Normal mg/dL (Normal) Urine Opiates Screen Neg (NEGATIVE) Urine Fentanyl Screen Neg (NEGATIVE) Urine Barbiturates Screen Neg (NEGATIVE) Urine Phencyclidine Screen Neg (NEGATIVE) Urine Amphetamines Screen Neg (NEGATIVE) Urine Benzodiazepines Screen Neg (NEGATIVE) Urine Cocaine Screen Neg (NEGATIVE) Urine Cannabinoids Screen Pos (NEGATIVE) Test 08/24/25 15:38 Hemoglobin A1c 5.2 % A1C (<5.7) Phosphorus Level 3.2 mg/dL (2.4-5.1) Total Bilirubin 0.3 mg/dL (0.2-1.0) Direct Bilirubin < 0.1 mg/dL (<0.3) Aspartate Amino Transferase (AST) 38 U/L (13-40) Alanine Aminotransferase (ALT) 28 U/L (7-40) Alkaline Phosphatase 103 U/L (46-116) Total Protein 8.8 g/dL (5.7-8.2) Albumin 4.8 g/dL (3.2-4.8) Vitamin B12 Level 618 pg/mL (211-911) Vitamin D 25-Hydroxy 22.9 ng/mL (30.0-100) Thyroid Stimulating Hormone (TSH) 4.68 uIU/mL (0.55-4.78) Other Laboratory Tests 08/25/25 06:36 Brief Hx & Hospital Course: Ms. Hall is a 74-year-old female with no prior medical history, who presents accompanied by daughter, Marisa, to the ED with chief complaint of generalized weakness. She refers 2 days of generalized weakness, fatigue, generalized body aches, diarrhea, vomiting, decreased appetite, chills and febrile sensation. Additionally refers occasional right lower back pain described as dull, non- radiating, 4/10 intensity, with aggravating or relieving factors. Urine test was done which showed WBC 65, few bacteria, squamous epithelial cells moderate, 1+ blood, 2+ ketones, 1+ protein. Ceftriaxone 1 g was given. Patient reports that she is asymptomatic. We gave her IV fluids bolus and maintenance and ordered urine culture and blood culture. For her nausea and vomiting we gave Zofran 4 mg IV once. Her labs also showed low vitamin-D levels so we repleted it. We had done test which came back negative but COVID test came back positive. We have asked the patient to isolate at home for 5 more days. Patient is stable for discharge and can go home as she is asymptomatic and is reporting to feel better. She has communicated understanding and is being discharged. Pt is lying on bed General Appearance: Alert, Oriented X3, Cooperative, Not in acute distress HEENT: Atraumatic, Mucous membranes moist/pink Respiratory: Clear to auscultation, Normal air movement, No added sounds Cardiovascular: Regular rate, Normal S1, Normal S2, No murmurs Abdominal: Active bowel sounds, Soft, no distention, no tenderness Extremities: No edema, Normal pulses, No tenderness/swelling Skin: No Significant rash, except past surgical scars Neuro: Normal speech, sensorimotor deficits none Psych/Mental Status: Mental status NL, Mood NL Nurse was there as senior product consultant during examination Operations or Procedures Exam: CT ABDOMEN WITHOUT CONTRAST History: Abdominal Pain IMPRESSION: No acute abdominal finding. Condition at Discharge: Stable Final Diagnosis/Problems List Acute Complicated UTI with microhematuria Acute Complicated UTI with microhematuria Intractable nausea and vomiting likely due to above Dehydration likely due to above Vitamin-D deficiency Marijuana Use Discharge Disposition: Home Discharge Instruct/Medications Diet: Consistent carbohydrate, Cardiac 2g Na,low cholest Activity: No Restrictions, As Tolerated Follow Up/Referral: Follow up with primary care physician in 10 days Medications: Resume all home medications No Active Prescriptions or Reported Meds Discharge Statement: "Patient was advised to return to the ER or call 911 if any headaches, dizziness, shortness of breath, chest pain, abdominal pain, bleeding, fevers, or worsening of medical condition. Patient was counseled about treatment plan, medications, possible side effects, patientverbalized understanding. All questions were answered to the best of my ability. This discharge took greater then 30 minutes in planning, reviewing documentation, counseling the patient, and discussing with other team members." ASSESSMENT ASSESSMENT Assessment Acute Complicated UTI with microhematuria Date of Service: Aug 25, 2025 Billing Provider: BILLIE GARCIA MD, SREYA RESIDENT Aug 25, 2025 13:22
== END 2025-08-25 16:45 | disposition home or self-care (01) | DRG 689 ==
LOC: ER 15:08 → OVERFLOW 21:02 → WEST WING 08-25 02:30
PROVIDERS: ADMIT Student in an Organized Health Care Education/Training Program; ATTEND Student in an Organized Health Care Education/Training Program
DX: N39.0 Urinary tract infection, site not specified (principal); U07.1 COVID-19; E86.0 Dehydration; E55.9 Vitamin D deficiency, unspecified; F12.90 Cannabis use, unspecified, uncomplicated; R31.29 Other microscopic hematuria; Z88.5 Allergy status to narcotic agent; Z88.8 Allergy status to other drugs, medicaments and biological substances; Z90.49 Acquired absence of other specified parts of digestive tract
CPT/HCPCS: 36415; 74150; 80048; 80076; 80307; 81001; 82306; 82607; 83036; 83605; 84100; 84443; 85025; 87040; 87086; 87426; 87804; 93005; 96365; 96375; 99291; G0378; J2470